=== PATIENT | female | born 1965 | race Caucasian/White ===

== ENCOUNTER 2023-07-30 00:16 | Emergency (ER) | payer BC ==
[2023-07-30 01:23] LABS: Bilirubin Negative (Negative); Blood, Urine Negative (Negative); Clarity Clear (Clear); Glucose, Urine (Dipstick) Negative (Negative); Ketone, Urine 15 mg/dL (Negative); Leukocyte Negative (Negative); Nitrite Negative (Negative); Protein, Urine (Dipstick) Negative (Neg-Trace); Specific Gravity, Urine 1.015 (1.005-1.030); Urobilinogen 0.2 mg/dL (Less than 2)
[2023-07-30 01:24] LABS: CAUTI Indications for Culture Dysuria,urgency,freq; RBC/HPF 0-3 HPF (0-3); Squamous Epithelial 0-3 HPF (0-3); Urine Culture Reflex No No; WBC/HPF None Seen HPF (0-3)
== END 2023-07-30 02:46 | disposition home or self-care (01) ==
LOC: MADERS 00:16
DX: R33.9 Retention of urine, unspecified (principal); I10 Essential (primary) hypertension; K21.9 Gastro-esophageal reflux disease without esophagitis
CPT/HCPCS: 51702; 81001; 99283

== ENCOUNTER 2023-07-30 11:30 | Emergency (ER) | payer BC | END 2023-07-30 12:17 | disposition home or self-care (01) | LOC: MADERS 11:30 | DX: R33.9 Retention of urine, unspecified (principal); I10 Essential (primary) hypertension; K21.9 Gastro-esophageal reflux disease without esophagitis | CPT/HCPCS: 51702; 81001; 99283 ==